=== PATIENT | female | born 2000 | race African-American/Black ===

== ENCOUNTER 2020-05-29 16:18 | Emergency (ER) | payer MEDICAID ==
[~2020-05-29] VITALS: Ht 172.7 cm; Wt 73.0 kg
[2020-05-29] MEDS ORDERED: ACET-2029 PO (16:23)
[2020-05-29] MEDS ORDERED: MORPHINE SULFATE 4 MG/ML CPJ (NOT FOR IM USE) IV ONE (16:45)
[2020-05-29 17:43] LABS: HEMATOCRIT. 31.6 % (36.0-48.0); MEAN CORPUSCULAR HEMOGLOBIN 17.1 pg (28.0-32.0); MEAN CORPUSCULAR VOLUME 59.8 fL (81.0-99.0); MEAN PLATELET VOLUME 9.1 fl (7.4-10.4); PLATELET 341 x1000/uL (130-400); RED BLOOD CELL COUNT 5.28 mill/uL (4.2-5.4); RED CELL DISTRIBUTION WIDTH 22.3 % (11.6-14.6)
[2020-05-29 17:49] LABS: CHLORIDE 107 mEq/L (98-107)
[2020-05-29 18:00] LABS: B-HCG QUANTITATIVE < 1 mIU/mL (<3)
[2020-05-29 18:14] LABS: CLARITY URINE CLOUDY (CLEAR); COLOR URINE RED (YELLOW); KETONES URINE NEGATIVE (NEGATIVE); LEUKOCYTE ESTERASE URINE 1+ (NEGATIVE); NITRITE URINE NEGATIVE (NEGATIVE); OCCULT BLOOD URINE 3+ (NEGATIVE); PROTEIN URINE 1+ (NEGATIVE); SPECIFIC GRAVITY URINE 1.016 (1.005-1.030); UROBILINOGEN URINE 0.2 E.U./dL (0.2-1.0)
[2020-05-29 18:52] LABS: PLATELET ESTIMATE NORMAL
[2020-05-29] MEDS ORDERED: CEFP200T14 MT (22:17)
[2020-05-29 22:35] VITALS: BP 111/76
[2020-05-29] MEDS ORDERED: IOHEXOL-300 100 ML BOTTLE ONE (23:17)
== END 2020-05-29 22:40 | disposition home or self-care (01) ==
LOC: ER 16:18
DX: N39.0 Urinary tract infection, site not specified (principal); D64.9 Anemia, unspecified; J45.909 Unspecified asthma, uncomplicated
CPT/HCPCS: 36415; 74177; 76830; 76856; 80053; 81003; 81025; 84702; 85025; 86850; 86900; 86901; 87086; 99285; Q9967; Z7610; J2270